=== PATIENT | female | born 1950 | race African-American/Black ===

== ENCOUNTER 2020-01-05 18:52 | Emergency (ER) | payer SELFPAY ==
[~2020-01-05] VITALS: Ht 172.7 cm; Wt 104.5 kg
[2020-01-05] MEDS ORDERED: IBUPROFEN 400 MG TABLET. PO ONE (19:15)
--- NOTE | 2020-01-05 19:27 | PHYS DOC ---
General Adult EDM: Chief Complaint: MECHANICAL FALL HPI: HPI: Patient is a 69 year old female who presents to the ED today complaining of moderate pain to the right elbow that began today after she fell. Patient [place], she states she tripped, fell and braced herself with her bilateral hands. Patient denies any loss of consciousness. Denies hitting her head on the ground. She reports the pain is sharp constant and worse on range of motion. Patient appears intoxicated and admits to drinking a couple beers prior to coming to the ED. Review of Systems: Review of Systems: Constitutional: Denies fever or chills. [] Eyes: Denies change in visual acuity. [] HENT: Denies nasal congestion or sore throat. [] Respiratory: Denies cough or shortness of breath. [] Cardiovascular: Denies chest pain or edema. [] GI: Denies abdominal pain, nausea, vomiting, bloody stools or diarrhea. [] : Denies dysuria. [] Musculoskeletal: Reports right elbow pain Integument: Denies rash. [] Neurologic: Denies headache, focal weakness or sensory changes. [] Psychiatric: Denies depression or anxiety. [] Heart Score: Risk Factors: Risk Factors: DM, Current or recent (<one month) smoker, HTN, HLP, family history of CAD, obesity. Risk Scores: Score 0 - 3: 2.5% MACE over next 6 weeks - Discharge Home Score 4 - 6: 20.3% MACE over next 6 weeks - Admit for Clinical Observation Score 7 - 10: 72.7% MACE over next 6 weeks - Early Invasive Strategies Current Medications: Current Medications Medications (Trade) Dose Ordered Sig/[facility] Start Time Stop Time Status Last Admin Dose Admin Ibuprofen (Motrin) 800 mg 1X ONCE 01/05/20 19:15 01/05/20 19:16 DC Allergies: Allergies: Allergies Coded Allergies Type Severity Reaction Last Updated Verified No Known Drug Allergies 01/05/20 No Physical Exam: PE: Constitutional: Well developed, well nourished, no acute distress, non-toxic appearance. [] HENT: Normocephalic, atraumatic, bilateral external ears normal, oropharynx moist, no oral exudates, nose normal. [] Eyes: PERRLA, EOMI, conjunctiva normal, no discharge. [] Neck: Normal range of motion, no tenderness, supple, no stridor. [] Cardiovascular:Heart rate regular rhythm, no murmur [] Lungs & Thorax: Bilateral breath sounds clear to auscultation [] Abdomen: Bowel sounds normal, soft, no tenderness, no masses, no pulsatile masses. [] Skin: Warm, dry, no erythema, no rash. [] Back: No tenderness, no CVA tenderness. [] Extremities: Right elbow appears obviously deformed. Limited range of motion to the right elbow. Adequate range of motion to the right fingers. Adequate radial, medial, ulnar sensation to the right upper extremity. +2 right radial pulse. Cap refill less than 2 seconds the right fingers. Neurologic: Alert and oriented X 3, normal motor function, normal sensory function, no focal deficits noted. [] Psychologic: Patient is very talkative, intoxicated with alcohol. EKG: EKG: [] Radiology/Procedures: Radiology/Procedures: []PROCEDURE: ELBOW RIGHT 3V ELBOW RIGHT 3V 01/05/2020 7:03 PM INDICATION: Fall, pain COMPARISON: None available. TECHNIQUE: 3 views of the right elbow are provided. FINDINGS/ IMPRESSION: 1. There is acute fracture or dislocation involving the right elbow with large associated elbow joint effusion. 2. There is a comminuted fracture of the radial head with particular extension. There is dislocation of the radiocapitellar joint with the radius displaced posteriorly. Suspect a nonspecific fracture of the capitellum involvement of the lateral condyle.. 3. There is an acute fracture of the coronoid process of the ulna without significant displacement. There is dislocation of the ulnar trochlear joint with ulnar displacement posteriorly. 4. Linear fragment along the medial epicondyle may represent an avulsion fracture. Electronically signed by: Soumya Mercedes MD (01/05/2020 7:41 PM) [facility] DICTATED and SIGNED BY: SOUMYA MERCEDES MD DATE: 01/05/201940 Course & Med Decision Making: Course & Med Decision Making Pertinent Labs and Imaging studies reviewed. (See chart for details) This is a 69-year-old female patient presenting to the ED today with right elbow pain status post falling. Right elbow x-rays interpreted by Dr. Boo noted for elbow dislocation and fracture please see full report on Xray. Dr. Boo administered conscious sedation as noted in joint reduction procedure note done by me. Reduction was done by me. Postreduction films were obtained elbow is back in place. Patient will be recovered in the ED and discharge to home f/u with Ortho next week. Angel Disclaimer: Angel Disclaimer: This electronic medical record was generated, in whole or in part, using a voice recognition dictation system. Joint Reduction Procedure Joint Indication: Joint dislocation Consent: Consent was obtained time out was called by Yue STARKS. Procedure: The pre-reduction exam showed distal perfusion and neurologic function to be normal.. The patient was placed in the appropriate position. Anesthesia/pain control was done by Dr. Boo using profoal. Reduction of the right elbow was performed by traction and counter traction and flexion by Cortney GONZALES. Post reduction films were obtained and revealed satisfactory reduction. A post-reduction exam revealed distal perfusion and neurologic function to be normal. The affected area was immobilized with posterior long arm splint by the technology specialist, neurovascular exam postreduction done by me is normal. The patient tolerated the procedure well. Complications: none. Departure Departure Impression: Primary Impression: Fall Qualified Codes: W19.XXXA - Unspecified fall, initial encounter Additional Impressions: Recurrent dislocation, right elbow Radial head fracture Qualified Codes: S52.121A - Displaced fracture of head of right radius, initial encounter for closed fracture Ulnar fracture Qualified Codes: S52.001A - Unspecified fracture of upper end of right ulna, initial encounter for closed fracture Disposition: HOME, SELF-CARE Condition: STABLE Referrals: JOSE PEDRAZA MD call his office on Wednesday and set up a follow up appointment Patient Instructions: Elbow Dislocation, Elbow Fracture, Radial Head with Rehab-SportsMed Additional Instructions: You had a dislocated fractured elbow. The elbow was put back in the joint. Please contact the provided orthopedic doctor on Wednesday morning and set up a follow-up appointment. Try to ice and elevate the extremity. CORTNEY LATIF APRN January 05, 2020 19:27
[2020-01-05] MEDS ORDERED: PROPOFOL 20 ML IV ONE (19:30)
[2020-01-05] MEDS ORDERED: ONDANSETRON PF 4 MG/2 ML VIAL. ONE (19:44)
--- NOTE | 2020-01-05 19:44 | RAD ---
ELBOW RIGHT 3V 01/05/2020 7:03 PM INDICATION: Fall, pain COMPARISON: None available. TECHNIQUE: 3 views of the right elbow are provided. FINDINGS/ IMPRESSION: 1. There is acute fracture or dislocation involving the right elbow with large associated elbow joint effusion. 2. There is a comminuted fracture of the radial head with particular extension. There is dislocation of the radiocapitellar joint with the radius displaced posteriorly. Suspect a nonspecific fracture of the capitellum involvement of the lateral condyle.. 3. There is an acute fracture of the coronoid process of the ulna without significant displacement. There is dislocation of the ulnar trochlear joint with ulnar displacement posteriorly. 4. Linear fragment along the medial epicondyle may represent an avulsion fracture. Electronically signed by: Abby Atkins MD (01/05/2020 7:41 PM) [facility]
[2020-01-05] MEDS ORDERED: ONDANSETRON PF 4 MG/2 ML VIAL. IVP ONE (19:45)
[2020-01-05 19:52] VITALS: BP 104/55
--- NOTE | 2020-01-05 20:44 | RAD ---
ELBOW RIGHT 3V 01/05/2020 8:00 PM INDICATION: Postreduction films COMPARISON: 01/05/2020 TECHNIQUE: 3 views of the right elbow are provided. FINDINGS/ IMPRESSION: Interval closed reduction of the radiocapitellar and ulna trochlear joints with improved near-anatomic alignment compared to prior examination. Demonstration of fractures involving the radial head and likely the medial epicondyles. Previously seen coronoid process fracture is not well visualized. Supracondylar fracture of the humerus may be present, best seen on the lateral postreduction view, nondisplaced. Electronically signed by: Abby Atkins MD (01/05/2020 8:41 PM) SONIA
[2020-01-05 21:25] VITALS: BP 177/79
== END 2020-01-05 21:40 | disposition home or self-care (01) ==
LOC: ER 18:52
DX: S52.041A Displaced fracture of coronoid process of right ulna, initial encounter for closed fracture (principal); S52.121A Displaced fracture of head of right radius, initial encounter for closed fracture; F10.229 Alcohol dependence with intoxication, unspecified; W01.0XXA Fall on same level from slipping, tripping and stumbling without subsequent striking against object, initial encounter; Y93.89 Activity, other specified; Y92.89 Other specified places as the place of occurrence of the external cause; Y99.8 Other external cause status
CPT/HCPCS: 24600; 73080; 96374; 99285; J2405; J2704